=== PATIENT | male | born 1965 | race Caucasian/White ===

== ENCOUNTER → 2024-01-13 09:27 | Outpatient (REF) | payer BC, SELFPAY | LOC: RAD 09:27 | PROVIDERS: ATTENDING PHYSICIAN Family Medicine | DX: Z13.6 Encounter for screening for cardiovascular disorders (principal) | CPT/HCPCS: 75571 ==

== ENCOUNTER 2024-05-17 06:21 | Day surgery (SDC) | payer BC, SELFPAY | END 2024-05-17 10:17 | disposition home or self-care (01) | LOC: GI 06:21 | PROVIDERS: ATTENDING PHYSICIAN Internal Medicine | DX: Z12.11 Encounter for screening for malignant neoplasm of colon (principal); Z80.0 Family history of malignant neoplasm of digestive organs; K57.30 Diverticulosis of large intestine without perforation or abscess without bleeding; K63.5 Polyp of colon | CPT/HCPCS: 45380; 88305 ==